=== PATIENT | female | born 1995 | race Caucasian/White ===

== ENCOUNTER 2018-12-10 01:41 | Inpatient (IN) | payer OTHER ==
[2018-12-10] MEDS ORDERED: Sodium Chloride 0.9% 1,000 ML IV ONE (02:20)
[2018-12-10] MEDS ORDERED: cefTRIAXone 2 GM in Sodium Chloride 0.9% 100 ML IV ONE (02:20)
--- NOTE | 2018-12-10 02:26 | ED Physician Chart ---
ED Chief Complaint/HPI - Patient Information Date Seen:: 12/10/18 Time Seen:: 02:22 Chief Complaint:: fever back pain uti History of Present Illness:: 23 yr old female hx of uti back pain hx of kidney infection with nausea back pain Allergies:: Allergies Allergy/AdvReac Type Severity Reaction Status Date / Time No Known Allergies Allergy Verified 12/10/18 02:08 Vitals:: Vital Signs - 8 hr 12/10/18 01:45 Temp 100.6 F HR 141 RR 20 BP 112/74 O2 Sat % 95 ED Review of Systems - Review of Systems General/Constitutional: Fever Skin: No skin lesions, No rash, No bruising Head: No headache, No light-headedness Eyes: No loss of vision, No pain, No diplopia ENT: No earache, No nasal drainage, No sore throat, No tinnitus Neck: No neck pain, No swelling, No thyromegaly, No stiffness, No mass noted Cardio Vascular: No chest pain, No palpitations, No PND, No orthopnea, No edema Pulmonary: No SOB, No cough, No sputum, No wheezing GI: Nausea, Pain G/U: No dysuria, No frequency, No hematuria Musculoskeletal: Back pain, Muscle pain Endocrine: No polyuria, No polydipsia Psychiatric: No prior psych history, No depression, No anxiety, No suicidal ideation Hematopoietic: No bruising, No lymphadenopathy Allergic/Immuno: No urticaria, No angioedema Neurological: No syncope, No focal symptoms, No weakness, No paresthesia, No headache, No seizure, No dizziness, No confusion, No vertigo ED Past Medical History - Past Medical History Past Medical History: No significant medical hx Family Medical History - Family Member Mother History Unknown: Yes ED Physical Exam - Physical Examination Other Gen/Cons comments:: malaise fever Head: Atraumatic Eyes: Lids, conjuctiva normal Skin: Nl inspection ENMT: External ears, nose nl Neck: Nontender Respiratory: Nl effort/Exclusion Cardio Vascular: RRR Extremities: No tenderness or effusion Neuro/Psych: Alert/oriented Other Misc comments:: back pain ED Assessment - Assessment General Assessment: r/o pyelo ED Septic Shock - . Is Septic Shock (SBP<90, OR Lactate>4 mmol\L) present?: No - <6hrs of presentation: Vital Signs: Vital Signs - 8 hr 12/10/18 01:45 Temp 100.6 F HR 141 RR 20 BP 112/74 O2 Sat % 95 ED Reassessment (Disposition) - Reassessment Reassessment:: r/o pyellonephritis - Diagnosis Diagnosis:: as above
[2018-12-10 03:01] LABS: URINE SOURCE CLEAN C
[2018-12-10 03:17] LABS: URINE BILIRUBIN MODERATE (NEGATIVE); URINE BLOOD LARGE (NEGATIVE); URINE GLUCOSE (UA) NEGATIVE (NEGATIVE); URINE KETONE >=80 mg/dL (NEGATIVE); URINE LEUKOCYTE ESTERASE TRACE (NEGATIVE); URINE MICROSCOPIC INDICATED? YES; URINE NITRATE NEGATIVE (NEGATIVE); URINE PH 5.5 (4.6 - 8.0); URINE PROTEIN 100 mg/dL (NEGATIVE)
[2018-12-10 03:21] LABS: ALB/GLOB RATIO 1.4 (1.0-1.8); ALBUMIN 4.2 gm/dL (3.7-5.3); ALKALINE PHOSPHATASE 101 U/L (34-104); ANION GAP 17.1 (7.0-16.0); BILIRUBIN,TOTAL 1.3 mg/dL (0.3-1.0); BUN - UREA NITROGEN 6 mg/dL (7-25); CALCIUM SERUM 9.1 mg/dL (8.6-10.3); CARBON DIOXIDE 21.8 mEq/L (21.0-31.0); CHLORIDE 100 mEq/L (98-107); CREATININE - SERUM 0.8 mg/dL (0.6-1.2); GFR AFRICAN-AMERICAN > 60.0 ml/min (>90); GFR NON AFRICAN-AMERICAN > 60.0 ml/min; GLUCOSE 131 mg/dL (70-105); SGOT 22 U/L (13-39); SGPT/ALT 18 U/L (7-52); SODIUM SERUM 136 mEq/L (136-145); TOTAL PROTEIN,SERUM 7.2 gm/dL (6.0-8.3)
[2018-12-10] MEDS ORDERED: Potassium Chloride 20 mEq ER Tab PO ONE ×2 (03:29→03:31)
[2018-12-10 03:44] LABS: HEMATOCRIT 43.7 % (41.0-60); HEMOGLOBIN 14.6 gm/dL (12-16); MEAN CELL VOLUME 90.8 fl (81-100); RED BLOOD COUNT 4.81 Mil/cmm (3.80-5.10)
[2018-12-10 03:45] LABS: MEAN CORPUSCULAR HEMOGLOBIN 30.3 pg (27.0-31.0); MEAN CORPUSCULAR HGB CONC 33.4 pg (28.0-36.0); PLATELET COUNT 337 Th/cmm (150-400); RED CELL DISTRIBUTION WIDTH 13.5 % (11.5-20.0)
[2018-12-10 03:53] LABS: URINE COLOR YELLOW
[2018-12-10 03:54] LABS: URINE CLARITY SLIGHT CLOUDY (CLEAR)
[2018-12-10 04:11] LABS: URINE ICTOTEST NEGATIVE (NEGATIVE)
[2018-12-10 04:12] LABS: URINE BACTERIA MANY /hpf (NONE SEEN); URINE EPITHELIAL CELLS MANY /lpf (FEW)
[2018-12-10] MEDS: Sodium Chloride 0.9% 1,000 ML IV SCH ×2 (05:58→14:46)
[2018-12-10 06:28] VITALS: BP 101/56
[2018-12-10 06:33] LABS: BAND NEUTROPHILE 5 % (0-10); LYMPHOCYTE 3 % (20-50); MONOCYTE 2 % (2-10); NEUTROPHILS 90 % (40-80); PLATELET ESTIMATE ADEQUATE (NORMAL)
[2018-12-10] MEDS ORDERED: VTE Chemical Prophylaxis Screen/Admission MC PRN (10:24)
--- NOTE | 2018-12-10 11:12 | History & Physical ---
ADMIT DATE: 12/10/2018 CHIEF COMPLAINT: Fevers, back pain, recently diagnosed with UTI. HISTORY OF PRESENT ILLNESS: The patient is a 23-year-old female with previous UTIs, perhaps 2 or 3 as well as kidney infections who was in her usual state of health until about a week ago when she started complaining of lower back pain. On 3-4 days later, she started complaining of fever and some chills and went to an urgent care where she was diagnosed with a UTI. She was given nitrofurantoin with no improvement of her symptoms. Her isolative temperatures got worse up to 104. The patient was brought into the ED where pertinent findings include a white count of 21,000 and a UA consistent with a UTI. The patient was given fluids, IV antibiotics and has been admitted to the medical/surgical floor for further management and care. PAST MEDICAL HISTORY: None. PAST SURGICAL HISTORY: Bilateral bunionectomy. FAMILY HISTORY: No major medical history on both sides of the family. SOCIAL HISTORY: No tobacco, ETOH or illicit drug usage. ALLERGIES: NKDA. OUTPATIENT MEDICATIONS: Nitrofurantoin. REVIEW OF SYSTEMS: CONSTITUTIONAL: Fever, chills, generalized weakness. No recent weight loss. CARDIOVASCULAR: No chest pain or palpitations. PULMONARY: No cough or sputum production. GASTROINTESTINAL: No bowel habit changes. GENITOURINARY: Please refer to the HPI. The patient denies any dysuria or hematuria. She denies any suprapubic abdominal pain. NEUROLOGIC: No changes in vision, no headaches. PHYSICAL EXAMINATION: VITAL SIGNS: Temperature 97.7, afebrile, pulse 76, respirations 18, BP 106/49, satting 100% on 2 liters nasal cannula. GENERAL: She is a well-developed, well-nourished female, not in acute distress. HEAD AND NECK: Normocephalic, atraumatic. Pupils reactive to light. Extraocular movements are intact. Oropharynx is moist and clear. CARDIAC: Regular rate and rhythm without any murmurs. LUNGS: Clear to auscultation bilaterally. ABDOMEN: Soft, supple, nontender, nondistended, normoactive bowel sounds. BACK: There is some mild tenderness to palpation on the left CV angle. EXTREMITIES: Lower extremities, no pedal edema. NEUROLOGIC: Grossly intact, nonfocal. LABORATORY DATA: On admission, white count 21,000 with 90% neutrophils. Sodium 136, chloride 100, gap of 17, BUN 6, creatinine 0.8, glucose 131. UA was positive for UTI as noted above. DIAGNOSTICS: None. PLAN: The patient has been admitted to Med/Surg where she has been placed on IV fluids, IV Rocephin and IV Toradol for severe pain. We will await urine cultures and sensitivities. I discussed with the patient and family all current findings. [facility]# [id number]
[2018-12-10 11:15] LABS: EOSINOPHILE ABSOLUTE 0.1 Th/cmm (0.1-0.4); HEMOGLOBIN 12.9 gm/dL (12-16); LYMPHOCYTE ABSOLUTE 0.9 Th/cmm (1.5-3.0); MEAN CELL VOLUME 90.6 fl (81-100); MEAN CORPUSCULAR HEMOGLOBIN 30.3 pg (27.0-31.0); MEAN CORPUSCULAR HGB CONC 33.5 pg (28.0-36.0); MONOCYTE ABSOLUTE 0.4 Th/cmm (0.3-1.0); PLATELET COUNT 302 Th/cmm (150-400); RED BLOOD COUNT 4.24 Mil/cmm (3.80-5.10); RED CELL DISTRIBUTION WIDTH 13.6 % (11.5-20.0)
[2018-12-10 11:21] LABS: HEMATOCRIT 38.4 % (41.0-60)
[2018-12-10 11:24] LABS: WHITE BLOOD COUNT 16.4 Th/cmm (4.8-10.8)
[2018-12-10 11:29] LABS: ANION GAP 11.8 (7.0-16.0); BUN - UREA NITROGEN 5 mg/dL (7-25); CALCIUM SERUM 8.2 mg/dL (8.6-10.3); CARBON DIOXIDE 21.7 mEq/L (21.0-31.0); CHLORIDE 106 mEq/L (98-107); CREATININE - SERUM 0.6 mg/dL (0.6-1.2); GFR AFRICAN-AMERICAN > 60.0 ml/min (>90); GFR NON AFRICAN-AMERICAN > 60.0 ml/min; GLUCOSE 137 mg/dL (70-105); MAGNESIUM 1.9 mg/dL (1.9-2.7); POTASSIUM SERUM 3.5 mEq/L (3.5-5.1); SODIUM SERUM 136 mEq/L (136-145)
[2018-12-10 11:43] LABS: BAND NEUTROPHILE 6 % (0-10); LYMPHOCYTE 4 % (20-50); MONOCYTE 5 % (2-10); NEUTROPHILS 85 % (40-80); PLATELET ESTIMATE ADEQUATE (NORMAL)
[2018-12-10] MEDS ORDERED: cefTRIAXone 1 GM in Sodium Chloride 0.9% 50 ML IV SCH (21:00)
[2018-12-11 05:07] LABS: % EOSINOPHILS 0.5 % (0.0-5.0); % LYMPHOCYTES 7.7 % (20.0-50.0); % MONOCYTES 7.7 % (2.0-10.0); % NEUTROPHILS 84.1 % (40.0-80.0); EOSINOPHILE ABSOLUTE 0.1 Th/cmm (0.1-0.4); HEMATOCRIT 37.8 % (41.0-60); HEMOGLOBIN 12.9 gm/dL (12-16); MEAN CELL VOLUME 89.5 fl (81-100); MEAN CORPUSCULAR HEMOGLOBIN 30.5 pg (27.0-31.0); MEAN CORPUSCULAR HGB CONC 34.1 pg (28.0-36.0); NEUTROPHILE ABSOLUTE 10.5 Th/cmm (1.8-8.0); PLATELET COUNT 290 Th/cmm (150-400); RED BLOOD COUNT 4.23 Mil/cmm (3.80-5.10); RED CELL DISTRIBUTION WIDTH 13.8 % (11.5-20.0); WHITE BLOOD COUNT 12.6 Th/cmm (4.8-10.8)
[2018-12-11 05:20] LABS: ALB/GLOB RATIO 1.3 (1.0-1.8); ALBUMIN 3.2 gm/dL (3.7-5.3); ALKALINE PHOSPHATASE 84 U/L (34-104); ANION GAP 8.9 (7.0-16.0); BILIRUBIN,TOTAL 0.5 mg/dL (0.3-1.0); BUN - UREA NITROGEN 3 mg/dL (7-25); CALCIUM SERUM 8.3 mg/dL (8.6-10.3); CARBON DIOXIDE 21.3 mEq/L (21.0-31.0); CHLORIDE 103 mEq/L (98-107); CREATININE - SERUM 0.6 mg/dL (0.6-1.2); GFR AFRICAN-AMERICAN > 60.0 ml/min (>90); GFR NON AFRICAN-AMERICAN > 60.0 ml/min; GLUCOSE 108 mg/dL (70-105); MAGNESIUM 1.9 mg/dL (1.9-2.7); POTASSIUM SERUM 3.2 mEq/L (3.5-5.1); SGOT 10 U/L (13-39); SGPT/ALT 15 U/L (7-52); SODIUM SERUM 130 mEq/L (136-145); TOTAL PROTEIN,SERUM 5.6 gm/dL (6.0-8.3)
[2018-12-11 05:58] LABS: NEUTROPHILS 84 % (40-80)
[2018-12-11 05:59] LABS: LYMPHOCYTE 12 % (20-50); MONOCYTE 4 % (2-10); PLATELET ESTIMATE ADEQUATE (NORMAL); PLATELET MORPHOLOGY NORMAL (NORMAL)
[2018-12-11] MEDS ORDERED: Potassium Chloride 20 mEq ER Tab PO ONE ×2 (09:22→13:23)
[2018-12-11] MEDS: Ciprofloxacin 200mg Premix PB 200 MG/100 ML BAG IV SCH ×2 (10:18→21:32)
[2018-12-11] MEDS: Sodium Chloride 0.9% 1,000 ML IV SCH (14:28)
[2018-12-12 04:23] LABS: % BASOPHILS 0.4 % (0.0-2.0); % EOSINOPHILS 0.6 % (0.0-5.0); % MONOCYTES 7.1 % (2.0-10.0); % NEUTROPHILS 79.9 % (40.0-80.0); HEMATOCRIT 37.1 % (41.0-60); HEMOGLOBIN 12.5 gm/dL (12-16); MEAN CELL VOLUME 91.2 fl (81-100); MEAN CORPUSCULAR HEMOGLOBIN 30.6 pg (27.0-31.0); MEAN CORPUSCULAR HGB CONC 33.6 pg (28.0-36.0); MONOCYTE ABSOLUTE 0.6 Th/cmm (0.3-1.0); NEUTROPHILE ABSOLUTE 6.6 Th/cmm (1.8-8.0); PLATELET COUNT 325 Th/cmm (150-400); RED BLOOD COUNT 4.07 Mil/cmm (3.80-5.10); RED CELL DISTRIBUTION WIDTH 13.7 % (11.5-20.0); WHITE BLOOD COUNT 8.2 Th/cmm (4.8-10.8)
[2018-12-12 04:51] LABS: CALCIUM SERUM 8.4 mg/dL (8.6-10.3); CARBON DIOXIDE 22.6 mEq/L (21.0-31.0); CHLORIDE 105 mEq/L (98-107); CREATININE - SERUM 0.6 mg/dL (0.6-1.2); GFR AFRICAN-AMERICAN > 60.0 ml/min (>90); GFR NON AFRICAN-AMERICAN > 60.0 ml/min; GLUCOSE 104 mg/dL (70-105); MAGNESIUM 1.8 mg/dL (1.9-2.7); POTASSIUM SERUM 3.6 mEq/L (3.5-5.1); SODIUM SERUM 135 mEq/L (136-145)
[2018-12-12 05:00] LABS: BUN - UREA NITROGEN < 2 mg/dL (7-25)
[2018-12-12] MEDS: Ciprofloxacin 200mg Premix PB 200 MG/100 ML BAG IV SCH ×2 (09:33→21:05)
--- NOTE | 2018-12-12 10:24 | Internal Medicine Prog Note ---
Internal Medicine Subjective - Subjective Service Date: 12/12/18 (RECURRENT FEVERS ON/OFF FOR THE LAST 2 DAYS) Patient seen and examined:: with staff Patient is:: awake Per staff patient has:: no adverse event Internal Medicine Objective - Results Result Diagrams: 12/12/18 04:15 12/12/18 04:15 Recent Labs: Laboratory Last Values WBC 8.2 Th/cmm (4.8-10.8) D 12/12/18 04:15 RBC 4.07 Mil/cmm (3.80-5.10) 12/12/18 04:15 Hgb 12.5 gm/dL (12-16) 12/12/18 04:15 Hct 37.1 % (41.0-60) L 12/12/18 04:15 MCV 91.2 fl (81-100) 12/12/18 04:15 MCH 30.6 pg (27.0-31.0) 12/12/18 04:15 MCHC Differential 33.6 pg (28.0-36.0) 12/12/18 04:15 RDW 13.7 % (11.5-20.0) 12/12/18 04:15 Plt Count 325 Th/cmm (150-400) 12/12/18 04:15 MPV 7.2 fl 12/12/18 04:15 Add Manual Diff YES 12/10/18 11:00 Neutrophils % 79.9 % (40.0-80.0) 12/12/18 04:15 Band Neutrophils % 6 % (0-10) 12/10/18 11:00 Lymphocytes % 12.0 % (20.0-50.0) L 12/12/18 04:15 Monocytes % 7.1 % (2.0-10.0) 12/12/18 04:15 Eosinophils % 0.6 % (0.0-5.0) 12/12/18 04:15 Basophils % 0.4 % (0.0-2.0) 12/12/18 04:15 Neutrophils (Manual) 84 % (40-80) H 12/11/18 04:55 Lymphocytes 12 % (20-50) L 12/11/18 04:55 Monocytes 4 % (2-10) 12/11/18 04:55 Platelet Estimate ADEQUATE (NORMAL) 12/11/18 04:55 Platelet Morphology NORMAL (NORMAL) 12/11/18 04:55 RBC Morph Micro Appear NORMAL (NORMAL) 12/11/18 04:55 Sodium 135 mEq/L (136-145) L 12/12/18 04:15 Potassium 3.6 mEq/L (3.5-5.1) 12/12/18 04:15 Chloride 105 mEq/L (98-107) 12/12/18 04:15 Carbon Dioxide 22.6 mEq/L (21.0-31.0) 12/12/18 04:15 Anion Gap 11.0 (7.0-16.0) 12/12/18 04:15 BUN < 2 mg/dL (7-25) L 12/12/18 04:15 Creatinine 0.6 mg/dL (0.6-1.2) 12/12/18 04:15 Est GFR ( Amer) > 60.0 ml/min (>90) 12/12/18 04:15 Est GFR (Non-Af Amer) > 60.0 ml/min 12/12/18 04:15 BUN/Creatinine Ratio 3.3 12/12/18 04:15 Glucose 104 mg/dL (70-105) 12/12/18 04:15 Whole Bld Lactic Acid 1.57 mmol/L (0.60-1.99) 12/10/18 02:25 Calcium 8.4 mg/dL (8.6-10.3) L 12/12/18 04:15 Magnesium 1.8 mg/dL (1.9-2.7) L 12/12/18 04:15 Total Bilirubin 0.5 mg/dL (0.3-1.0) 12/11/18 04:55 AST 10 U/L (13-39) L 12/11/18 04:55 ALT 15 U/L (7-52) 12/11/18 04:55 Alkaline Phosphatase 84 U/L (34-104) 12/11/18 04:55 Total Protein 5.6 gm/dL (6.0-8.3) L 12/11/18 04:55 Albumin 3.2 gm/dL (3.7-5.3) L 12/11/18 04:55 Globulin 2.4 gm/dL 12/11/18 04:55 Albumin/Globulin Ratio 1.3 (1.0-1.8) 12/11/18 04:55 Urine Source CLEAN C 12/10/18 01:55 Urine Color YELLOW 12/10/18 01:55 Urine Clarity SLIGHT CLOUDY (CLEAR) H 12/10/18 01:55 Urine pH 5.5 (4.6 - 8.0) 12/10/18 01:55 Ur Specific [place] 1.025 (1.005-1.030) 12/10/18 01:55 Urine Protein 100 mg/dL (NEGATIVE) H 12/10/18 01:55 Urine Glucose (UA) NEGATIVE mg/dL (NEGATIVE) 12/10/18 01:55 Urine Ketones >=80 mg/dL (NEGATIVE) H 12/10/18 01:55 Urine Blood LARGE (NEGATIVE) H 12/10/18 01:55 Urine Nitrate NEGATIVE (NEGATIVE) 12/10/18 01:55 Urine Bilirubin MODERATE (NEGATIVE) H 12/10/18 01:55 Urine Ictotest NEGATIVE (NEGATIVE) 12/10/18 01:55 Urine Urobilinogen 2.0 E.U./dL (0.2 - 1.0) 12/10/18 01:55 Ur Leukocyte Esterase TRACE (NEGATIVE) H 12/10/18 01:55 Urine RBC 10-25 /hpf (0-5) H 12/10/18 01:55 Urine WBC 6-10 /hpf (0-5) H 12/10/18 01:55 Ur Epithelial Cells MANY /lpf (FEW) 12/10/18 01:55 Urine Bacteria MANY /hpf (NONE SEEN) H 12/10/18 01:55 Urine Test NEGATIVE 12/10/18 14:35 UC/S-NEG - Physical Exam Vitals and I&O: Vital Signs Temp 96.8 F 12/12/18 09:00 Pulse 98 12/12/18 09:00 Resp 18 12/12/18 09:00 BP 127/75 12/12/18 09:00 Pulse Ox 97 12/12/18 09:00 Intake & Output 12/11/18 12/12/18 12/12/18 18:59 06:59 18:59 Intake Total 1750 1300 2400 Output Total 1 Balance 1750 1300 2399 Weight (lbs) 89.358 kg 90.446 kg Intake: Intake, IV Amount 150 1300 Cefepime 1 gm In Dextrose 50 50 5% 50 ml @ 100 mls/hr IV Q12HR [facility] Rx#:[id number] Ciprofloxacin 200mg 100 100 Premix PB 200 mg In 100 ml @ 100 mls/hr IV Q12HR [facility] Rx#:[id number] Sodium Chloride 0.9% 1, 1000 000 ml @ 100 mls/hr IV . Q10H [facility] Rx#:[id number] Oral 1600 2400 Output: Stool 1 Other: # Voids 3 5 # Bowel Movements 0 Weight Source Bedscale Bedscale Active Medications: Current Medications Acetaminophen (Tylenol) 650 mg PO Q4HR PRN PRN Reason: Pain or Fever >101 Stop: 02/09/19 13:29 Last Admin: 12/12/18 01:41 Dose: 650 mg Sodium Chloride (Nacl 0.9%) 1,000 mls @ 100 mls/hr IV .Q10H [facility] Stop: 02/08/19 05:41 Last Infusion: 12/12/18 01:33 Dose: Infused Cefepime HCl 1 gm/ Dextrose 50 mls @ 100 mls/hr IV Q12HR [facility] Stop: 02/09/19 09:29 Last Admin: 12/12/18 08:56 Dose: 100 mls/hr Ciprofloxacin (Cipro 200mg Premix Pb) 200 mg in 100 mls @ 100 mls/hr IV Q12HR [facility] Stop: 02/09/19 09:29 Last Admin: 12/12/18 09:33 Dose: 100 mls/hr Ketorolac Tromethamine (Toradol) 30 mg IVP Q6HR PRN PRN Reason: Pain (Moderate) Stop: 12/15/18 05:41 Last Admin: 12/12/18 05:31 Dose: 30 mg Lorazepam (Ativan) 1 mg PO Q6HR PRN; Protocol PRN Reason: Anxiety Stop: 02/09/19 09:21 Last Admin: 12/11/18 21:19 Dose: 1 mg Miscellaneous (Vte Chemical Prophylaxis Screen/ Admission) 1 ea [facility] PRN PRN PRN Reason: PROTOCOL Stop: 02/08/19 10:23 Ondansetron HCl (Zofran) 4 mg IV Q4HR PRN PRN Reason: Nausea / Vomiting Stop: 02/08/19 05:41 Last Admin: 12/11/18 13:32 Dose: 4 mg General: NAD HEENT: NC/AT, PERRLA, EOMI Neck: No JVD, No LAD Lungs: CTAB Cardiovascular: RRR, Normal S1, Normal S2, without murmur Abdomen: soft, non-tender, positive bowel sound Extremities: clear Neurological: no change Internal Medicine Assmt/Plan - Assessment Assessment: FEVER/SEPSIS--UROSEPSIS (RECURRENT FEVERS) UTI LEUKOCYTOSIS-improving - Plan Plan: CONT WITH IV ABXS (PRIMAXIN/CIPRO iv), IVF CONT WITH OTHER SUPPORTIVE CARE REPEAT UA
[2018-12-12] MEDS: Sodium Chloride 0.9% 1,000 ML IV SCH (12:12)
[2018-12-12 12:41] LABS: URINE SOURCE CLEAN C
[2018-12-12 12:45] LABS: URINE BILIRUBIN NEGATIVE (NEGATIVE); URINE BLOOD TRACE (NEGATIVE); URINE GLUCOSE (UA) NEGATIVE (NEGATIVE); URINE KETONE NEGATIVE (NEGATIVE); URINE LEUKOCYTE ESTERASE TRACE (NEGATIVE); URINE MICROSCOPIC INDICATED? YES; URINE NITRATE NEGATIVE (NEGATIVE); URINE PH 7.5 (4.6 - 8.0); URINE PROTEIN NEGATIVE (NEGATIVE); URINE UROBILINOGEN 0.2 E.U./dL (0.2 - 1.0)
[2018-12-12 12:55] LABS: URINE BACTERIA OCCASIONAL /hpf (NONE SEEN); URINE CLARITY CLEAR (CLEAR); URINE COLOR YELLOW; URINE EPITHELIAL CELLS FEW /lpf (FEW); URINE RBC 0-2 /hpf (0-5)
[2018-12-13 04:20] LABS: % EOSINOPHILS 0.7 % (0.0-5.0); % LYMPHOCYTES 16.6 % (20.0-50.0); % MONOCYTES 9.1 % (2.0-10.0); % NEUTROPHILS 73.6 % (40.0-80.0); EOSINOPHILE ABSOLUTE 0.1 Th/cmm (0.1-0.4); HEMATOCRIT 35.6 % (41.0-60); LYMPHOCYTE ABSOLUTE 1.3 Th/cmm (1.5-3.0); MEAN CELL VOLUME 90.2 fl (81-100); MEAN CORPUSCULAR HEMOGLOBIN 30.4 pg (27.0-31.0); MEAN CORPUSCULAR HGB CONC 33.7 pg (28.0-36.0); MONOCYTE ABSOLUTE 0.7 Th/cmm (0.3-1.0); NEUTROPHILE ABSOLUTE 5.5 Th/cmm (1.8-8.0); PLATELET COUNT 368 Th/cmm (150-400); RED BLOOD COUNT 3.95 Mil/cmm (3.80-5.10); RED CELL DISTRIBUTION WIDTH 14.2 % (11.5-20.0); WHITE BLOOD COUNT 7.6 Th/cmm (4.8-10.8)
[2018-12-13] MEDS: Sodium Chloride 0.9% 1,000 ML IV SCH (04:49)
[2018-12-13 04:57] LABS: BUN - UREA NITROGEN 3 mg/dL (7-25); CALCIUM SERUM 8.7 mg/dL (8.6-10.3); CARBON DIOXIDE 22.1 mEq/L (21.0-31.0); CHLORIDE 102 mEq/L (98-107); GLUCOSE 142 mg/dL (70-105); MAGNESIUM 1.8 mg/dL (1.9-2.7); POTASSIUM SERUM 3.1 mEq/L (3.5-5.1); SODIUM SERUM 133 mEq/L (136-145)
[2018-12-13 06:28] LABS: CREATININE - SERUM 0.7 mg/dL (0.6-1.2); GFR AFRICAN-AMERICAN > 60.0 ml/min (>90); GFR NON AFRICAN-AMERICAN > 60.0 ml/min
[2018-12-13] MEDS: Ciprofloxacin 200mg Premix PB 200 MG/100 ML BAG IV SCH (08:18)
[2018-12-13] MEDS ORDERED: Potassium Chloride 20 mEq ER Tab PO ONE (09:17)
--- NOTE | 2018-12-13 15:43 | Discharge Summary ---
DATE OF DISCHARGE: 12/13/2018 ADMITTING DIAGNOSES: 1. Fever, sepsis secondary to urinary tract infection. 2. Urinary tract infection. 3. Leukocytosis. SECONDARY DIAGNOSIS: None. DISCHARGE DIAGNOSES: 1. Fever, sepsis secondary to urinary tract infection -- clinically resolved with blood cultures negative. 2. Urinary tract infection -- clinically improved. 3. Leukocytosis -- resolved. CONSULTANTS: There were no consultants used during this admission. MAJOR PROCEDURES: There were no major procedures done during this admission. BRIEF HOSPITAL COURSE: The patient is a 23-year-old female who reports previous UTIs in the past, who was in her usual state of health until about a week prior to admission when she started complaining of lower back pain, gradually getting worse and 3 days prior to admission, she started having tactile fever, chills and body aches. She went to her primary care doctor and was given nitrofurantoin with no improvement. Temperature on the day of admission was up to 104 and that is when they decided to come into the ER where pertinent findings included a white count of 21,000 and UA consistent with UTI. The patient was admitted to Medical Surgical floor, placed on IV fluids, IV antibiotics and she was given pain management with Toradol and Tylenol. She reported improvement by hospital day #1, although she was still spiking elevated temperatures. Her Rocephin was eventually changed to Zosyn and she was also started on Cipro with cessation of fevers. Her white blood cell count also improved from 21,000 to eventually 12.6 on 12/11 and 8.2 on 12/12. Cultures were both negative for blood and urine. MEDICATIONS ON DISCHARGE: Tylenol 500 mg q. 4 hours p.r.n. for fever, chills and Cipro 500 mg b.i.d. x 7 days. DISPOSITION: The patient was instructed to follow up her primary care doctor within 2-3 days. [facility]# [id number]
== END 2018-12-13 12:45 | disposition home or self-care (01) | DRG 872 ==
LOC: ER 01:41 → MSI 05:01
PROVIDERS: ADMIT Internal Medicine; ATTEND Internal Medicine
DX: A41.9 Sepsis, unspecified organism (principal); N39.0 Urinary tract infection, site not specified
CPT/HCPCS: 36415-UA; 80048-TC; 80053-TC; 81001-TC; 81025-TC; 83605; 83735-TC; 85007-TC; 85025-TC; 87086-90; 94760; 96375; J0692; J0696; J0744; J1885; J2405; J2543; J3475; J7030; Z7610